=== PATIENT | female | born 1975 | race Caucasian/White ===

== ENCOUNTER → 2025-01-09 08:39 | Outpatient (REF) | payer BC, SELFPAY ==
[2025-01-09 09:55] LABS: % Basophils 0.4 % (0-2); % Eosinophils 5.1 % (0-6); % Immature Granulocytes 0.1 % (0-0.5); % Lymphocytes 25.8 % (20.5-51.1); % Monocytes 5.3 % (1.7-9.3); % Neutrophils 63.3 % (42.2-75.2); Absolute Eosinophils 0.4 10^3/uL (0-0.7); Absolute Lymphocytes 1.9 10^3/uL (1.2-3.4); Absolute Monocytes 0.4 10^3/uL (0.1-0.6); Absolute Neutrophils 4.7 10^3/uL (1.4-6.5); Hematocrit 38.1 % (37.0-47.0); Hemoglobin 12.7 g/dL (12.0-16.0); Mean Corp Hgb Conc. 33.3 g/dL (33.0-37.0); Mean Corpuscular Hgb 31.1 pg (27.0-31.0); Mean Corpuscular Volume 93.2 fL (81.0-99.0); Mean Platelet Volume 10.3 fL (7.4-10.4); Nucleated Red Blood Cells % 0 %; Platelet Count 275 10^3/uL (130-400); Red Blood Cell Count 4.09 10^6/uL (4.20-5.40); Red Cell Dist. Width 12.9 % (11.5-14.5); White Blood Cell Count 7.5 10^3/uL (4.8-10.8)
[2025-01-09 10:38] LABS: ALT (SGPT) 54 U/L (0-35); AST (SGOT) 46 U/L (14-36); Albumin 4.9 g/dl (3.5-5.0); Alkaline Phosphatase 61 U/L (38-126); Blood Urea Nitrogen 20 mg/dl (7-17); Carbon Dioxide 30 mmol/L (22-30); Chloride 104 mmol/L (98-107); Glucose 86 mg/dl (70-99); HDL Cholesterol 94 mg/dl; LDL Cholesterol, Calculated 112 mg/dl; Potassium 4.9 mmol/L (3.5-5.1); Sodium 143 mmol/L (135-145); Total Bilirubin 0.7 mg/dl (0.2-1.3); Total Cholesterol 219 mg/dl (50-199); Total Protein 7.2 g/dl (6.3-8.2); Triglyceride 69 mg/dl (10-149); Very Low Density Lipoprotein 13 mg/dl (0-30); eGFR > 60.00
[2025-01-09 11:05] LABS: TSH Reflex To Free T4 2.03 uIU/ml (0.47-4.68)
[2025-01-09 12:14] LABS: FSH 42.2 mIU/ml
== END ==
LOC: REG 08:39
PROVIDERS: ATTENDING PHYSICIAN Obstetrics & Gynecology; FAMILY PHYSICIAN Family Medicine
DX: Z78.0 Asymptomatic menopausal state (principal); Z88.0 Allergy status to penicillin; F31.9 Bipolar disorder, unspecified; E55.9 Vitamin D deficiency, unspecified; Z13.220 Encounter for screening for lipoid disorders
CPT/HCPCS: 36415; 80053; 80061; 82306; 83001; 83002; 84443; 85025

== ENCOUNTER → 2025-07-02 10:59 | Outpatient (REF) | payer BC, SELFPAY ==
[2025-07-02 13:30] LABS: ALT (SGPT) 18 U/L (0-35); AST (SGOT) 19 U/L (14-36); Albumin 4.7 g/dl (3.5-5.0); Alkaline Phosphatase 50 U/L (38-126); Total Protein 7.1 g/dl (6.3-8.2)
== END ==
LOC: WDC 10:59
PROVIDERS: ATTENDING PHYSICIAN Obstetrics & Gynecology; FAMILY PHYSICIAN Family Medicine
DX: Z12.31 Encounter for screening mammogram for malignant neoplasm of breast (principal); R74.01 Elevation of levels of liver transaminase levels
CPT/HCPCS: 36415; 77063; 77067; 80076

== ENCOUNTER 2025-08-25 06:17 | Day surgery (SDC) | payer BC, SELFPAY | END 2025-08-25 11:40 | disposition home or self-care (01) | LOC: GI 06:17 | PROVIDERS: ATTENDING PHYSICIAN Internal Medicine | DX: Z12.11 Encounter for screening for malignant neoplasm of colon (principal); Z86.0100 Personal history of colon polyps, unspecified | CPT/HCPCS: G0105 ==